=== PATIENT | male | born 1965 | race Caucasian/White ===

== ENCOUNTER 2019-02-23 18:32 | Emergency (ER) | payer BC ==
[~2019-02-23] VITALS: Ht 182.9 cm; Wt 111.1 kg
[2019-02-23] MEDS ORDERED: TAMS.4ER PO (18:45)
[2019-02-23] MEDS ORDERED: Keflex500 MG PO (19:26)
== END 2019-02-23 19:38 | disposition home or self-care (01) ==
LOC: ER 18:32
DX: S60.450A Superficial foreign body of right index finger, initial encounter (principal); Z79.899 Other long term (current) drug therapy; W45.8XXA Other foreign body or object entering through skin, initial encounter
CPT/HCPCS: 10120; 90471; 90714; 99283-25

== ENCOUNTER → 2023-08-17 | Outpatient (CLI) | payer BC ==
[~2023-08-17] MED LIST: Keflex500 MG PO; TAMS.4ER PO
[2023-08-18 19:42] LABS: Norovirus GI/GII Detected (NOT DETECT)
[2023-08-18 19:43] LABS: Adenovirus F 40/41 Not Detected (NOT DETECT); Astrovirus Not Detected (NOT DETECT); Cryptosporidium Not Detected (NOT DETECT); Cyclospora Cayetanensis Not Detected (NOT DETECT); E. Coli O157 Not Detected (NOT DETECT); Entamoeba Histolytica Not Detected (NOT DETECT); Enteroaggregative E. coli-EAEC Not Detected (NOT DETECT); Enteropathogenic E. coli-EPEC Not Detected (NOT DETECT); Enterotoxigenic E. coli-ETEC Not Detected (NOT DETECT); Giardia Lamblia Not Detected (NOT DETECT); Plesiomonas Shigelloides Not Detected (NOT DETECT); Rotavirus A Not Detected (NOT DETECT); Salmonella Sp Not Detected (NOT DETECT); Sapovirus Not Detected (NOT DETECT); Shiga Toxin-prod E. coli-STEC Not Detected (NOT DETECT); Shigella/Enteroin E. coli-EIEC Not Detected (NOT DETECT); Vibrio Cholerae Not Detected (NOT DETECT); Vibrio Sp Not Detected (NOT DETECT); Yersinia Enterocolitica Not Detected (NOT DETECT)
[2023-09-13 09:37] LABS: Campylobacter Sp Not Detected (NOT DETECT)
== END ==
LOC: LAB 18:00 → LAB SHORT 18:00
PROVIDERS: Physician Assistant Surgical
DX: R19.5 Other fecal abnormalities (principal)
CPT/HCPCS: 87507